=== PATIENT | male | born 1970 | race Caucasian/White ===

== ENCOUNTER 2025-03-02 12:58 | Emergency (ER) | payer BC, SELFPAY ==
[2025-03-02 13:00] VITALS: BP 125/94; PULSE 77; RESP 18; TEMP 36.2; O2SAT 98; BMI 26.9
[2025-03-02 13:15] VITALS: O2SAT 96
--- NOTE | 2025-03-02 13:15 | EKG12_ITS ---
Test Reason : CP Blood Pressure : */* mmHG Vent. Rate : 68 BPM Atrial Rate : 68 BPM P-R Int : 160 ms QRS Dur : 98 ms QT Int : 376 ms P-R-T Axes : 39 28 28 degrees QTcB Int : 399 ms Normal sinus rhythm Normal ECG Confirmed by PRAKASH VALENZUELA, JANET ([id number]), proposal editor JULIA EVANS ([id number]) on 03/08/2025 7:07:35 AM Referred By: UG/TB Confirmed By: JANET RANDALL MD
[2025-03-02 13:28] LABS: Absolute Lymphocyte Count 1.22 X10^3/uL (0.83-4.51); Absolute Neutrophil Count 3.3 X10^3/uL (2.0-7.7); Basophil# 0.05 X10^3/uL; Hematocrit 44.7 % (40-54); Hemoglobin 16.3 g/dL (13.0-16.5); Lymphocyte # 1.22 X10^3/ul (0.83-4.51); Mean Corp Hgb Conc 36.5 g/dL (32-36); Mean Corpuscular Volume 90.5 fL (80-94); Mean Platelet Vol. 9.6 fl (6.2-12.0); Monocyte# 0.45 X10^3/uL; Monocyte% 8.8 % (0-10); NRBC Flagged by Analyzer 0 % (0-5); Neutrophil # 3.26 X10^3/uL (2.7-7.7); Platelet Count 180 K/mm3 (150-450); RBC Distribution Width CV 12.2 % (11.6-14.6); RBC Distribution Width SD 40.3 fl (35.1-43.9); Red Blood Count 4.94 M/mm3 (4.6-6.2); White Blood Count 5.1 K/mm3 (4.4-11.0)
--- NOTE | 2025-03-02 13:34 | RAD_ITS ---
PROCEDURE: CHEST PA AND LATERAL 03/02/2025 REASON FOR EXAM: CHEST PAIN TECHNIQUE: Frontal and lateral views of the chest. COMPARISON: None. RAD/Chest PA and Lateral IMPRESSION: No pleural effusion or pneumothorax is seen. Lungs appear clear throughout. The cardiomediastinal silhouette is within the normal range. Mild thoracic spine degenerative changes are noted. No evidence of acute cardiopulmonary disease. Reading Location: [id number]
[2025-03-02 13:58] LABS: Anion Gap 11 (5-15); BUN 15 mg/dL (4-19); BUN/Creat Ratio 15.1 RATIO (10-20); Calcium,Total 9.5 mg/dL (7.6-11.0); Carbon Dioxide 23.6 mmol/L (21.0-32.0); Chloride 106 mmol/L (98-108); Creatinine, Serum 1.02 mg/dL (0.70-1.20); EST Glomerular Filtration Rate 87 (>60); Estimated Creatinine Clearance 90.87 ml/min (50-250); Glucose 97 mg/dL (70-99); Potassium 3.9 mmol/L (3.3-5.1); Sodium Level 141 mmol/L (133-145); Troponin T High Sensitivity 8 ng/L (<=22)
[2025-03-02 14:00] VITALS: BP 133/80; PULSE 69; RESP 16; O2SAT 97
[2025-03-02 15:00] VITALS: BP 132/86; PULSE 63; O2SAT 97
[2025-03-02 16:00] VITALS: BP 126/88; PULSE 66; RESP 18; O2SAT 99
[2025-03-02 16:11] LABS: Troponin T High Sens 2 HR 7 ng/L (<=22)
--- NOTE | 2025-03-02 16:33 | ED.VIS.CHEST ---
HPI History of Present Illness Chief Complaint: Chest Pain Narrative Narrative: Patient is a 54-year-old male with past medical history rosacea chronically on doxycycline who presents to the emergency department chief complaint chest pain. Patient states that his chest pain is going on for approximately 3 weeks and has been constant. He states that nothing makes this better or worse. He states that when he works out the pain does not get worse she denies shortness of breath he states that does not radiate anywhere. Patient denies any recent travel history denies history of blood clots. He states that he is adopted and does not know family history. [facility] Medical History Rosacea Home Medications ?Medication ?Instructions ?Recorded ?Last Taken ?Type doxycycline monohydrate 50 mg 50 mg PO DAILY 03/02/25 03/01/25 History tablet Allergy/AdvReac Type Severity Reaction Status Date / Time No Known Allergies Allergy Verified 03/02/25 13:00 Surgical History S/P ACL surgery Social History Smoking Status: Never smoker ROS ROS ED ROS Narrative Constitutional: Denies fevers, chills, headaches Cardiovascular: Complains of chest pain as noted above Respiratory: Denies coughing wheezing shortness of breath Abdomen: Denies abdominal pain nausea vomit diarrhea Neurological: Denies numbness, tingling, weakness Musculoskeletal: Denies back pain Skin: Denies rashes or lesions EXAM Physical Exam Narrative Exam Narrative: General: Patient lying in bed rest comfortably did not appear to be in acute distress Head: Atraumatic, normocephalic Eyes: PERRL bilaterally, EOMI bilaterally, no conjunctival injection noted Neck: Soft, supple, trachea midline Cardiovascular: Regular rate and rhythm no murmurs gallops rubs noted Respiratory: Clear to auscultation bilaterally Abdomen: Soft, nondistended, no tenderness to palpation Extremities: +5/5 strength in the bilateral upper and lower extremities, radial pulses +2/4 in the bilateral upper extremities Neurological: Patient follow commands knew that he was at [facility] the year is 2024 Skin: Warm, dry, intact no rashes or lesions noted Const Vital Signs: 03/02/25 13:00 03/02/25 13:15 03/02/25 14:00 Temperature 97.1 F L Temperature Source Temporal Pulse Rate 77 69 Respiratory Rate 18 16 Blood Pressure 125/94 H 133/80 H Blood Pressure Mean 104 97 Pulse Ox 98 96 97 Oxygen Delivery Method Room Air Room Air Room Air 03/02/25 15:00 03/02/25 16:00 Temperature Temperature Source Pulse Rate 63 66 Respiratory Rate 18 Blood Pressure 132/86 H 126/88 H Blood Pressure Mean 101 100 Pulse Ox 97 99 Oxygen Delivery Method Room Air Room Air MDM MDM MDM Narrative Medical decision making narrative: Patient is a 54-year-old male who presents to the emergency department chief complaint of left-sided chest pain. On the differential diagnosis includes but not limited to ACS, pneumonia, pneumothorax, musculoskeletal strain, PE although have low suspicion for this. Once workup is obtained reviewed he will be reevaluated. [place] Score (Revised) for Pulmonary Embolism from [email or web address] on 03/02/2025 All calculations should be rechecked by clinician prior to use RESULT SUMMARY: 0 points Low risk group: 7-9% incidence of PE from several studies. INPUTS: Age >65 ?> 0 = No Previous DVT or PE ?> 0 = No Surgery (under general anesthesia) or lower limb fracture in past month ?> 0 = No Active malignant condition ?> 0 = No Unilateral lower limb pain ?> 0 = No Hemoptysis ?> 0 = No Heart rate ?> 0 = < 75 Pain on lower limb palpation and unilateral edema ?> 0 = No HEART Score for Major Cardiac Events from [email or web address] on 03/02/2025 All calculations should be rechecked by clinician prior to use RESULT SUMMARY: 1 points Low Score (0-3 points) Risk of MACE of 0.9-1.7%. INPUTS: History ?> 0 = Slightly suspicious EKG ?> 0 = Normal Age ?> 1 = 45-64 Risk factors ?> 0 = No known risk factors Initial troponin ?> 0 = <=ormal limit Patient CBC reviewed showed no evidence leukocytosis white blood count normal 5.1, he was 16.3, plate count normal at 180. Patient sodium normal 141, potassium normal 3.9, creatinine normal at 1.02. Patient's troponin was 8 with a delta troponin of 7. Patient's EKG was reviewed which showed sinus rhythm with a rate of 68 bpm. Patient TSH normal at 2.53, free T4 and T3 were 1.30 and 3 respectively. Patient's chest x-ray reviewed and showed no acute cardiopulmonary processes this was reviewed by myself and by radiology. Will discuss case with on-call project control analyst in regards to his chest pain although have low suspicion as this pain has been persistent for 3 weeks. Discussed case with on-call project control analyst Dr. Pemberton who agrees and he states that he can follow-up with his primary care physician in the outpatient setting and obtain an outpatient stress test. Discussed this plan with the patient he is agreeable this plan he like to go all course concerns answered he is discharged home in stable condition. Lab Data Labs: Laboratory Results - last 24 hr 03/02/25 03/02/25 13:19 15:26 WBC 5.1 RBC 4.94 Hgb 16.3 Hct 44.7 MCV 90.5 MCH 33.0 H MCHC 36.5 H RDW Std Deviation 40.3 RDW Coeff of Gabriel 12.2 Plt Count 180 MPV 9.6 Immature Gran % (Auto) 0.200 Neut % (Auto) 64.0 Lymph % (Auto) 24.0 [place] % (Auto) 8.8 Eos % (Auto) 2.0 Baso % (Auto) 1.0 Absolute Neuts (auto) 3.3 Absolute Lymphs (auto) 1.22 Nucleated RBC % 0 Sodium 141 Potassium 3.9 Chloride 106 Carbon Dioxide 23.6 Anion Gap 11 BUN 15 Creatinine 1.02 Estim Creat Clear Calc 90.87 Est GFR (MDRD) Non-Af 87 BUN/Creatinine Ratio 15.1 Glucose 97 Calcium 9.5 Troponin T High Sens 8 Troponin T Hi Sens 2 Hr 7 TSH 2.530 Free T4 1.30 Free T3 pg/dL 3.0 Radiography Diagnostic Testing: Clinical Impression(s) from Imaging Studies Chest X-Ray 03/02/25 13:34 IMPRESSION: No pleural effusion or pneumothorax is seen. Lungs appear clear throughout. The cardiomediastinal silhouette is within the normal range. Mild thoracic spine degenerative changes are noted. No evidence of acute cardiopulmonary disease. Reading Location: [address] Discharge Plan Triage Chief Complaint: Chest Pain ED Provider: Romain Addison Dx/Rx/DC Orders Clinical Impression: Chest pain Prescriptions: No Action doxycycline monohydrate 50 mg tablet 50 mg PO DAILY Primary Care Provider: Joel Monique Referrals: Joel Monique MD [Primary Care Provider] - Activity Restrictions/Additional Instructions: Follow-up with your primary care physician in the outpatient setting. Your blood work here did not show any acute findings neither did your chest x-ray. Return with worsening symptoms or any other concerns Print Language: Urdu Disposition Disposition: Home, Self Care
[2025-03-02 16:43] VITALS: BP 126/88; PULSE 66; RESP 18; TEMP 36.2; O2SAT 99
== END 2025-03-02 16:49 | disposition home or self-care (01) ==
PROVIDERS: Emergency Provider Emergency Medicine; PCP Family Medicine; Visit Provider Emergency Medicine
DX: R07.9 Chest pain, unspecified (principal)
CPT/HCPCS: 71046; 80048; 84439; 84443; 84481; 84484; 85025; 93005; 99284; A4216